=== PATIENT | male | born 1970 | race Caucasian/White ===

== ENCOUNTER 2019-11-16 13:00 | Emergency (ER) | payer OTHER ==
[2019-11-16 13:45] LABS: #Lymphocytes 1.2 thou/uL (1.20-3.40); #Monocytes 0.4 thou/uL (0.11-0.59); #Neutrophils 4.1 thou/uL (1.40-6.50); %Basophils 0.7 % (0.0-1.0); %Eosinophils 0.3 % (0.0-10.0); %Lymphocytes 20.8 % (21.0-51.0); %Monocytes 7.7 % (0.0-10.0); %Neutrophils 70.6 % (42.0-75.0); Hemoglobin 16.4 g/dL (14.0-18.0); Mean Corpuscular Hemoglobin 29.3 pg (27.0-31.0); Mean Corpuscular Volume 94.4 fL (78.0-98.0); Mean Platelet Volume 7.9 fL (7.4-10.4); Platelet Count 189 thou/uL (130-400); RBC Distribution Width 11.4 % (11.5-14.5); Red Blood Cell (RBC) Count 5.59 mill/uL (4.70-6.10); White Blood Cell (WBC) Count 5.8 thou/uL (4.8-10.8)
[2019-11-16] MEDS ORDERED: Aspirin Chewable 81 MG TAB ONE (13:49)
[2019-11-16] MEDS ORDERED: Mag-Al Plus 1200 MG/1200 MG/120 MG/30 ML UDCUP ONE (13:50)
[2019-11-16] MEDS ORDERED: Lidocaine Viscous Sol 2% 15 ml UD Cup ONE (13:50)
[2019-11-16 13:58] LABS: ALT (SGPT) 31 U/L (8-55); AST (SGOT) 20 U/L (5-34); Albumin 4.9 g/dL (3.5-5.0); Alkaline Phosphatase 75 U/L (40-110); Anion Gap 15 mmol/L (10-20); BUN (Urea Nitrogen) 16 mg/dL (8.4-25.7); Bilirubin, Total 2.3 mg/dL (0.2-1.2); CK (CPK) 66 U/L (30-200); Calc. Creatinine Clearance 0 mL/min (70-130); Calcium 9.9 mg/dL (7.8-10.44); Carbon Dioxide 25 mmol/L (22-29); Chloride 104 mmol/L (98-107); Estimated GFR-MDRD 77; Globulin 2.6 g/dL (2.4-3.5); Glucose 128 mg/dL (70-105); Potassium 3.9 mmol/L (3.5-5.1); Protein, Total 7.5 g/dL (6.0-8.3); Sodium 140 mmol/L (136-145)
[2019-11-16 14:03] LABS: CKMB 0.7 ng/mL (0-6.6)
--- NOTE | 2019-11-16 14:06 | RAD ---
PORTABLE CHEST 1 VIEW: DATE: 11/16/2019. TIME: 1:39 p.m. HISTORY: Chest pain. FINDINGS: The heart size is normal. The lungs are expanded without focal areas of consolidation, pneumothorace s, or pleural effusions. IMPRESSION: No acute process. POS: [facility]
[2019-11-16 14:41] LABS: Bilirubin Negative (Negative); Blood, Urine Negative (Negative); Clarity Clear (Clear); Glucose, Urine (Dipstick) Negative (Negative); Leukocyte Negative (Negative); Nitrite Negative (Negative); Protein, Urine (Dipstick) Negative (Neg-Trace); Urobilinogen 0.2 mg/dL (Less than 2)
--- NOTE | 2019-11-16 15:59 | CT ---
CT ABDOMEN AND PELVIS WITH IV CONTRAST: 11/16/19 HISTORY: Left lower quadrant pain and left upper quadrant pain. FINDINGS: There are minimal dependent changes at the lung bases. Gallstones are present. The spleen, pancreas, adrenal glands and right kidney are normal. There is an 18 mm low density lesion in the anterior aspe ct of the dome of the liver in the left lobe, likely cyst. A nonobstructing 4 mm left renal calculus is noted. No free air, free fluid or lymphadenopathy seen in the abdomen or pelvis. The small bowel loops are not abnormally dilated. There is mild colonic diverticulosis without evide nce of diverticulitis. Prostate is enlarged. There are vascular calcifications without evidence of a neurysmal dilatation of the abdominal aorta. There are degenerative changes in the spine most promine nt at L5-S1 level. IMPRESSION: 1. Cholelithiasis. 2. Nonobstructing 4 mm left renal calculus. 3. Colonic diverticulosis. 4. Prostatic enlargement. 5. Small hepatic cyst. POS: [facility]
== END 2019-11-16 16:30 | disposition home or self-care (01) ==
LOC: MADERS 13:00
DX: K80.20 Calculus of gallbladder without cholecystitis without obstruction (principal); R07.9 Chest pain, unspecified; E78.5 Hyperlipidemia, unspecified; E78.00 Pure hypercholesterolemia, unspecified; Z79.899 Other long term (current) drug therapy
CPT/HCPCS: 71045; 74177; 80053; 81003; 82150; 82550; 82553; 83690; 83880; 84484; 85025; 93005